=== PATIENT | male | born 1980 | race Caucasian/White ===

== ENCOUNTER 2017-05-13 20:25 | Emergency (ER) | payer BC ==
[~2017-05-13] VITALS: Ht 177.8 cm; Wt 93.2 kg
[2017-05-13] MEDS ORDERED: DESYREL 100MG100 MG PO (20:38)
[2017-05-13 21:16] LABS: EOS # 0.1 (0.04-0.40); EOS % 0.6 % (0.0-4.0); HEMATOCRIT 45.1 % (42.0-52.0); HEMOGLOBIN 15.2 g/dL (13.5-18.0); LYMPH# 1.6 (1.50-4.00); MEAN CELL VOLUME 86 fl (78-100); MEAN CORPUSCULAR HEMOGLOBIN 29 pg (27-31); MEAN CORPUSCULAR HGB CONC 34 g/dL (33-37); MEAN PLATELET VOLUME 10.5 fl (7.4-10.4); MONO # 0.8 (0.20-0.80); NEU # 6.7 (1.40-6.50); PLATELET COUNT 211 K/mm3 (130-400); RED BLOOD COUNT 5.24 M/mm3 (4.20-5.60); RED CELL DISTRIBUTION WIDTH 13.1 % (11.5-14.5); WHITE BLOOD COUNT 9.3 K/mm3 (4.8-10.8)
[2017-05-13 21:25] LABS: ALBUMIN 4.3 g/dL (3.5-5.0); BUN/CREATININE RATIO 20.4 (6.0-26.0); POTASSIUM 3.6 mmol/L (3.6-5.0); TOTAL BILIRUBIN 0.7 mg/dL (0.2-1.3); TOTAL PROTEIN 7.7 g/dL (6.3-8.2)
[2017-05-13 22:40] VITALS: BP 126/78
== END 2017-05-13 22:40 | disposition home or self-care (01) ==
LOC: ED 20:25
PROVIDERS: Nurse Practitioner Family
DX: T14.8XXA Other injury of unspecified body region, initial encounter (principal); S20.411A Abrasion of right back wall of thorax, initial encounter; Y92.008 Other place in unspecified non-institutional (private) residence as the place of occurrence of the external cause; W23.0XXA Caught, crushed, jammed, or pinched between moving objects, initial encounter; F41.9 Anxiety disorder, unspecified
CPT/HCPCS: J1885; J2270; J2405; J7030

== ENCOUNTER 2021-10-21 15:10 | Outpatient (RCR) | payer OTHER ==
[~2021-10-21 15:10] MED LIST: DESYREL 100MG100 MG PO
== END 2021-11-12 | disposition home or self-care (01) ==
LOC: PT
DX: M54.50 Low back pain, unspecified (principal)

== ENCOUNTER 2021-11-13 08:00 | Outpatient (RCR) | payer OTHER | END 2021-12-09 14:29 | disposition still patient (30) | LOC: PT 08:00 | DX: M54.50 Low back pain, unspecified (principal) ==